=== PATIENT | female | born 1995 | race Hispanic/Latino ===

== ENCOUNTER 2021-02-13 13:48 | Emergency (ER) | payer SELFPAY ==
[~2021-02-13] VITALS: Ht 152.4 cm; Wt 80.0 kg
[~2021-02-13 13:48] MED LIST: FAMOTIDINE20 M1 PO; HYDROXYCHLOR200 M1 PO; IRON325 M1 PO; ISONIAZID300 MG PO; LORTAB 5/3255 MG PO; NAPROXEN500 MG PO; NEXIUM40 M1 PO; PREDNISONE20 MG PO
[2021-02-13 15:09] LABS: HEMOGLOBIN 12.7 g/dl (12.0-16.0); IMMATURE GRANULOCYTES 0.1 % (0.0-5.0); MEAN CELL VOLUME 86.2 fL CALC (80.0-100.0); MEAN CORPUSCULAR HGB 28.8 pG CALC (26.0-32.0); MEAN CORPUSCULAR HGB CONC 33.4 g/dL CAL (32.0-36.0); NEUT# 6.09 thou/uL (2.00-7.15); RED BLOOD COUNT 4.41 mill/uL (4.20-5.60); RED CELL DISTRI WIDTH 12.5 % (11.5-15.5)
[2021-02-13 15:19] LABS: ALBUMIN 3.9 g/dL (3.2-5.0); ALKALINE PHOSPHATASE 57 u/l (38-126); ANION GAP 17 (6-22 (CALC)); BUN 8 mg/dL (7-17); BUN/CREATININE RATIO 15 (12-20 (CALC)); CARBON DIOXIDE 19 mmol/l (22-30); CHLORIDE 102 mmol/l (95-108); CREATININE 0.5 mg/dL (0.5-1.0); GFR > 60 ML/MIN (>=60 (CALC)); GFR FOR AFR.AMER. > 60 ML/MIN (>=60 (CALC)); POTASSIUM 3.8 mmol/l (3.5-5.1); SGOT/AST 85 u/l (14-36); SODIUM 134 mmol/l (137-146); TOTAL PROTEIN 8.2 g/dL (6.3-8.2)
[2021-02-13 15:31] LABS: MYOGLOBIN 11 ng/mL (0 - 62)
[2021-02-13 15:51] LABS: TSH, 3RD GENERATION 2.85 uIU/mL (0.47 - 4.68)
[2021-02-13 15:54] LABS: INTERNATIONAL NORMALIZED RATIO 1.1 RATIO (0.7-1.3); PROTHROMBIN TIME 11.5 SECONDS (9.0-12.5)
[2021-02-13 19:00] VITALS: BP 109/75
[2021-02-13 19:05] LABS: URINE BILIRUBIN - DIPSTICK NEGATIVE (NEGATIVE); URINE BLOOD DIPSTICK NEGATIVE (NEGATIVE); URINE COLOR YELLOW; URINE GLUCOSE - DIPSTICK NEGATIVE (NEGATIVE); URINE KETONE NEGATIVE (NEGATIVE); URINE LEUK ESTERASE NEGATIVE (NEGATIVE); URINE PH 6.5 (4.5-8.0); URINE PROTEIN - DIPSTICK 100 mg/dL (NEG-TRACE); URINE SPECIFIC GRAVITY <=1.005; URINE UROBILINOGEN - DIPSTICK 0.2 E.U./dL (0.2)
[2021-02-13 19:07] LABS: URINE NITRITE - DIPSTICK NEGATIVE (Negative); URINE RBC 0-2 RBC/hpf (0-5); URINE SQUAMOUS EPITHELIAL CELL FEW EPI/hpf (0-FEW); URINE WBC 0-2 WBC/hpf (0-5)
== END 2021-02-13 19:15 | disposition short-term general hospital (02) | DRG 316 ==
LOC: ED 13:48
PROVIDERS: Emergency Medicine
DX: I31.3 Pericardial effusion (noninflammatory) (principal); R79.89 Other specified abnormal findings of blood chemistry; Z20.822 Contact with and (suspected) exposure to COVID-19
CPT/HCPCS: J1644; Q9967

== ENCOUNTER 2022-08-17 10:05 | Emergency (ER) | payer OTHER ==
[~2022-08-17] VITALS: Ht 152.4 cm; Wt 76.0 kg
[2022-08-17] VITALS (9 sets, daily range): BP systolic 101–137; BP diastolic 68–83
[2022-08-17] MEDS ORDERED: METOPROL TAR25 MG PO (10:25)
[2022-08-17] MEDS ORDERED: HYDROXYCHLOR200 M1 PO (10:25)
[2022-08-17] MEDS ORDERED: OPSUMIT10 MG (10:26)
[2022-08-17] MEDS ORDERED: MYCOPHENOLAT500 MG PO (10:27)
[2022-08-17] MEDS ORDERED: D3250 MCG (10:27)
[2022-08-17 10:44] LABS: BASO% 0.1 % (0-3); HEMATOCRIT 37.4 % (37.0-47.0); HEMOGLOBIN 13.3 g/dl (12.0-16.0); IMMATURE GRANULOCYTES 0.2 % (0.0-5.0); LYMPH% 6.7 % (15-41); MEAN CELL VOLUME 83.7 fL CALC (80.0-100.0); MEAN CORPUSCULAR HGB 29.8 pG CALC (26.0-32.0); MEAN CORPUSCULAR HGB CONC 35.6 g/dL CAL (32.0-36.0); MONO% 7.6 % (2-13); NEUT# 20.57 thou/uL (2.00-7.15); NEUT% 85.4 % (42-76); RED BLOOD COUNT 4.47 mill/uL (4.20-5.60); RED CELL DISTRI WIDTH 12.4 % (11.5-15.5)
[2022-08-17 11:00] LABS: ALBUMIN 4.5 g/dL (3.2-5.0); ANION GAP 13 (6-22 (CALC)); BUN 4 mg/dL (7-17); BUN/CREATININE RATIO 7 (12-20 (CALC)); CARBON DIOXIDE 22 mmol/l (22-30); CHLORIDE 104 mmol/l (95-108); CREATININE 0.5 mg/dL (0.5-1.0); GFR FOR AFR.AMER. > 60 ML/MIN (>=60 (CALC)); GFR OTHER RACES > 60 ML/MIN (>=60 (CALC)); POTASSIUM 3.3 mmol/l (3.5-5.1); SGOT/AST 47 u/l (14-36); SODIUM 135 mmol/l (137-146); TOTAL PROTEIN 8.3 g/dL (6.3-8.2)
[2022-08-17 11:03] LABS: ALKALINE PHOSPHATASE 105 u/l (38-126)
== END 2022-08-17 13:34 | disposition short-term general hospital (02) ==
LOC: ED 10:05
PROVIDERS: Emergency Medicine
DX: R79.89 Other specified abnormal findings of blood chemistry (principal); J96.91 Respiratory failure, unspecified with hypoxia; E87.6 Hypokalemia; Z20.822 Contact with and (suspected) exposure to COVID-19
CPT/HCPCS: Q9967